=== PATIENT | female | born 1965 | race Caucasian/White ===

== ENCOUNTER → 2023-02-18 09:33 | Outpatient (CLI) | payer OTHER, BC, SELFPAY ==
--- NOTE | ~2023-02-18 | CT_ITS ---
Non-contrast CT scan of the Abdomen and Pelvis Clinical indication: Abdominal pain Technique: 2.5 mm axial scans were obtained through the abdomen and pelvis without intravenous or or al contrast. Dose reduction technique was used on this scan by utilizing automated exposure control a nd iterative reconstruction technique. The dose-length product (DLP) was 205.83 mGy-cm. Findings: Images through the lung bases reveal no abnormalities. There is no evidence of renal or ureteral calculi. The kidneys and the ureters are nondilated. The liver, spleen, pancreas, gallbladder, and adrenals appear normal. There is no aortic aneurysm. There is no evidence of bowel obstruction. Images through the pelvis were performed. There is no evidence of ascites or lymphadenopathy. Urinary bladder unremarkable. No pelvic mass evident. Impression: No significant abnormality seen. Reviewed, dictated and finalized at [facility]. OPERATOR Impression: No significant abnormality seen.
== END ==
PROVIDERS: Visit Provider Family Medicine
DX: R10.9 Unspecified abdominal pain (principal); Z85.43 Personal history of malignant neoplasm of ovary; Z85.3 Personal history of malignant neoplasm of breast
CPT/HCPCS: 74176

== ENCOUNTER 2023-09-23 07:53 | Outpatient (CLI) | payer BC, SELFPAY | END 2023-09-23 07:54 | disposition home or self-care (01) | LOC: ANHAUDASC 07:53 | PROVIDERS: PCP Family Medicine; Visit Provider Family Medicine | DX: H90.42 Sensorineural hearing loss, unilateral, left ear, with unrestricted hearing on the contralateral side (principal) | CPT/HCPCS: 92557; 92567 ==

== ENCOUNTER 2023-11-19 09:50 | Outpatient (CLI) | payer BC, SELFPAY ==
[2023-11-19 14:22] LABS: Cholesterol 207 mg/dL (0-200); HDL Direct 84 mg/dL; Triglycerides 93 mg/dL (<150)
[2023-11-19 14:34] LABS: LDL Cholesterol Direct 84 mg/dL
[2023-11-19 14:57] LABS: Vitamin D 25 Hydroxy 53.7 ng/mL
[2023-11-22 07:49] LABS: Immunoglobulin A 96 mg/dL (47-310); TTG IGA AB <1.0 U/mL
== END 2023-11-19 09:51 | disposition home or self-care (01) ==
PROVIDERS: PCP Family Medicine; Visit Provider Family Medicine
DX: D75.89 Other specified diseases of blood and blood-forming organs (principal); R03.0 Elevated blood-pressure reading, without diagnosis of hypertension; E55.9 Vitamin D deficiency, unspecified
CPT/HCPCS: 36415; 80061; 82306; 82607; 82784; 86364